=== PATIENT | female | born 1955 | race Caucasian/White ===

== ENCOUNTER → 2016-12-27 09:17 | Outpatient (CLI) | payer OTHER ==
[2014-10-07 06:44] VITALS: BMI 20.6
[~2016-12-27 09:17] MED LIST: CO Q-1050 MG PO; PRAVACHOL40 MG PO; VITAMIN D2000 UNIT PO
== END | disposition home or self-care (01) ==
LOC: D.CT 09:17
DX: R10.9 Unspecified abdominal pain (principal)

== ENCOUNTER → 2017-09-02 19:47 | Outpatient (CLI) | payer OTHER ==
[2014-10-07 06:44] VITALS: BMI 20.6
== END | disposition home or self-care (01) ==
LOC: D.MAMMO 11:15
DX: Z12.31 Encounter for screening mammogram for malignant neoplasm of breast (principal)

== ENCOUNTER 2017-10-09 11:47 | Emergency (ER) | payer OTHER ==
[2014-10-07 06:44] VITALS: BMI 20.6
--- NOTE | ~2017-10-09 | CN ---
PATIENT NAME:LILY KERR MEDICAL RECORD: [id number] : 53 LOCATION:.ER ADMIT DATE: ACCOUNT: [id number] CONSULTING PHYSICIAN: NACHO LUO MD REFERRING PHYSICIAN: EMMY OCHOA MD DATE OF CONSULTATION: 10/09/2017 DIAGNOSIS: Chest pain. HISTORY OF PRESENT ILLNESS: Ms. Kerr has no previous cardiac history. She has chest pain, some typical and some atypical components. Typical components are that it is a dull aching pressure sensation in the anterior chest with radiation to the back. The atypical component is that it only happens when she moves. If she is still, it resolves. Any movement brings it on, movement of her arms or walking brings it on and it has been present only for the past 2 days. Her EKG is normal. Troponin is normal. PHYSICAL EXAMINATION: GENERAL APPEARANCE: Well-nourished, well-developed, appears stated age. Level of distress, comfortable. PSYCHIATRIC: Mental status, alert, normal affect. Orientation, oriented to time, place and person. EYES: Lids and conjunctiva, noninjected. No discharge, no pallor. ENT: Lips, teeth, gums, normal dentition. Oropharynx, no cyanosis, no pallor. NECK: Carotid arteries, bilateral normal upstroke, no bruits, no thrills. JUGULAR VEINS: No jugular venous pressure or distention. CERVICAL LYMPH NODES: Nontender, nonenlarged. THYROID: Not enlarged. Nontender. No nodules. LUNGS: Respiratory effort, unlabored. CHEST: Normal curvature. No thoracic deformity. No chest wall tenderness. Percussion, resonant. Auscultation, clear. No wheezes, no rales, no rhonchi. CARDIOVASCULAR: Precordial exam, nondisplaced. No heaves or pericardial thrills. Rate and rhythm, regular. Heart sounds, normal S1, normal S2. No S3, no gallop, no rub. Systolic murmur, not heard. Diastolic murmur, not heard. EXTREMITIES: No cyanosis, no edema. Peripheral pulses, full and equal in all extremities, except as noted. No bruits appreciated. ABDOMEN: Soft, nondistended. Normal aorta. No bruit. Nontender. No masses. Liver, nontender, no hepatomegaly. Spleen, nontender, no splenomegaly. MUSCULOSKELETAL: No joint tenderness. No joint swelling. No erythema. NEUROLOGICAL: Normal gait, normal strength, normal tone. SKIN: Warm and dry. OVERALL IMPRESSION: Low likelihood that this is cardiac secondary to the fact that it is there with movement. This is most likely musculoskeletal. We will schedule stress testing with [facility] as an outpatient. TRANSINT:[id number] Voice Confirmation ID: [id number] DOCUMENT ID: [id number] CONSULT REPORT [id number] LILY KERR, NACHO NASH at 0956 CC: [id number] DICTATION DATE: 10/09/17 1407 [facility]Y [facility]NAG[facility] SYSTEM DIRECTOR: 10/09/17 1833 DEP ER 10/09/17 [facility] [address] [place] [address]
[2017-10-09 12:08] LABS: BASOPHILS 0.9 % (0-2); EOSINOPHILS 1.9 % (0-7); HEMATOCRIT 45.8 % (36.0-48.0); IMMATURE GRANULOCYTES 0.1 % (0-5); LYMPHOCYTES 32.8 % (15-50); MCH 30.4 pg (26.0-34.0); MCHC 32.8 g/dL (31.0-37.0); MCV 92.7 fL (80.0-100.0); MEAN PLATELET VOLUME 10.5 fL (7.4-10.4); MONOCYTES 8.8 % (2-11); NEUTROPHILS 55.5 % (40-80); RBC 4.94 10x6/uL (4.00-5.40); RDW 12.5 % (11.5-14.5); WBC 6.7 10x3/uL (4.8-10.8)
[2017-10-09 12:10] LABS: PLATELET COUNT 213 10x3/uL (130-400)
[2017-10-09 12:23] LABS: ALBUMIN 3.9 g/dL (3.4-5.0); ALKALINE PHOSPHATASE 59 U/L (46-116); ALT (SGPT) 25 U/L (10-68); BILIRUBIN - TOTAL 0.56 mg/dL (0.2-1.3); CALC OSMOLALITY 281 mosm/kg (275-300); CALCIUM 9.2 mg/dL (8.5-10.1); CARBON DIOXIDE 30.3 mmol/L (21.0-32.0); CHLORIDE - SERUM 103 mmol/L (98-107); CREATININE - SERUM 0.6 mg/dL (0.6-1.3); GLUCOSE 89 mg/dL (74-106); POTASSIUM - SERUM 4.5 mmol/L (3.5-5.1); PROTEIN - SERUM 7.7 g/dL (6.4-8.2); SODIUM 142 mmol/L (136-145); UREA NITROGEN 12 mg/dL (7-18); eGFR NON AFRICAN AMERICAN > 90 mL/min (90-120)
[2017-10-09 12:53] LABS: CKMB 1.5 U/L (0.0-3.6); CREATINE KINASE 102 UL (21-215); PRO BNP 54 pg/mL (0-125); TROPONIN-I < 0.017 ng/mL (0.000-0.060)
== END 2017-10-09 14:58 | disposition home or self-care (01) ==
LOC: D.ER 11:47
PROVIDERS: Family Medicine
DX: R07.89 Other chest pain (principal)